=== PATIENT | male | born 1995 | race African-American/Black ===

== ENCOUNTER 2017-12-08 10:12 | Emergency (ER) | payer SELFPAY ==
[2017-12-08] MEDS ORDERED: Acetaminophen 325 MG/10.15 ML UDCUP ONE (10:40)
== END 2017-12-08 13:51 | disposition home or self-care (01) ==
LOC: ERS 10:12
DX: J11.1 Influenza due to unidentified influenza virus with other respiratory manifestations (principal); Z71.6 Tobacco abuse counseling; F17.210 Nicotine dependence, cigarettes, uncomplicated
CPT/HCPCS: 87081; 87430; 99406

== ENCOUNTER 2020-03-18 04:02 | Emergency (ER) | payer SELFPAY ==
[2020-03-18] MEDS ORDERED: Acetaminophen 500 MG TAB ONE (04:32)
[2020-03-18] MEDS ORDERED: Ibuprofen 800 MG TAB ONE (04:32)
== END 2020-03-18 05:19 | disposition home or self-care (01) ==
LOC: ERS 04:02
DX: M25.562 Pain in left knee (principal); M25.561 Pain in right knee; M25.572 Pain in left ankle and joints of left foot; M25.571 Pain in right ankle and joints of right foot; M54.6 Pain in thoracic spine; R50.9 Fever, unspecified; F17.210 Nicotine dependence, cigarettes, uncomplicated
CPT/HCPCS: 99283

== ENCOUNTER 2020-03-23 17:38 | Emergency (ER) | payer OTHER, SELFPAY ==
[2020-03-24 11:09] LABS: SARS-CoV-2 MS2 Positive; SARS-CoV-2 N Gene Positive; SARS-CoV-2 S Gene Positive; SARS-CoV-2 orf1ab Positive
== END 2020-03-23 18:36 | disposition home or self-care (01) ==
LOC: ERS 17:38
DX: U07.1 COVID-19 (principal); R51 Headache; R68.83 Chills (without fever)
CPT/HCPCS: 87635; 99284; U0003

== ENCOUNTER 2024-01-03 04:18 | Emergency (ER) | payer BC, SELFPAY ==
[2024-01-03] MEDS ORDERED: Morphine 4 MG/ML VIAL ONE (04:25)
[2024-01-03] MEDS ORDERED: Ondansetron PF 4 MG/2 ML Vial ONE (04:25)
[2024-01-03] MEDS ORDERED: Ketorolac Tromethamine 30 MG (1 mL) VIAL ONE (04:25)
[2024-01-03 04:54] LABS: #Eosinphils 0.1 thou/uL (0.0-0.7); #Neutrophils 3.4 thou/uL (1.40-6.50); %Basophils 0.2 % (0.0-1.0); %Eosinophils 1.1 % (0.0-10.0); %Lymphocytes 55.5 % (21.0-51.0); %Monocytes 9.4 % (0.0-10.0); %Neutrophils 33.6 % (42.0-75.0); Hematocrit 45.5 % (42.0-52.0); Hemoglobin 15.5 g/dL (14.0-18.0); Mean Corpuscular HGB CONC 34.1 g/dL (32.0-36.0); Mean Corpuscular Hemoglobin 30.7 pg (27.0-31.0); Mean Corpuscular Volume 90.1 fl (78.0-98.0); Mean Platelet Volume 10.3 fL (7.4-10.4); Platelet Count 201 10x3/uL (130-400); RBC Distribution Width 13.2 % (11.5-14.5); Red Blood Cell (RBC) Count 5.05 mill/uL (4.70-6.10); White Blood Cell (WBC) Count 10.1 10x3/uL (4.8-10.8)
[2024-01-03 05:17] LABS: ALT (SGPT) 15 U/L (8-55); AST (SGOT) 23 U/L (5-34); Albumin 4.5 g/dL (3.5-5.0); Alkaline Phosphatase 51 U/L (40-110); Anion Gap 14 mmol/L (10-20); BUN (Urea Nitrogen) 16 mg/dL (8.9-20.6); Bilirubin, Total 0.5 mg/dL (0.2-1.2); Calc. Creatinine Clearance 0 mL/min (70-130); Carbon Dioxide 25 mmol/L (22-29); Chloride 103 mmol/L (98-107); Estimated GFR 72; Globulin 3.1 g/dL (2.4-3.5); Glucose 109 mg/dL (70-105); Potassium 3.4 mmol/L (3.5-5.1); Protein, Total 7.6 g/dL (6.0-8.3); Sodium 139 mmol/L (136-145)
[2024-01-03 07:44] LABS: Bilirubin Negative (Negative); Blood, Urine 3+ (Negative); CAUTI Indications for Culture Dysuria,urgency,freq; Clarity Clear (Clear); Glucose, Urine (Dipstick) Normal (Negative); Ketone, Urine Trace mg/dL (Negative); Leukocyte Negative Leu/uL (Negative); Nitrite Negative (Negative); Protein, Urine (Dipstick) 30 mg/dL (Neg-Trace); RBC/HPF Greater than 50 HPF (0-3); Specific Gravity, Urine 1.026 (1.002-1.036); Squamous Epithelial None Seen HPF (0-3)
[2024-01-03 07:55] LABS: Bacteria/HPF None Seen HPF (None Seen); WBC/HPF 0-3 HPF (0-3)
[2024-01-03 07:56] LABS: Urine Culture Reflex No No
== END 2024-01-03 09:05 | disposition home or self-care (01) ==
LOC: ERS 04:18
DX: N13.2 Hydronephrosis with renal and ureteral calculous obstruction (principal); F17.210 Nicotine dependence, cigarettes, uncomplicated
CPT/HCPCS: 74176; 80053; 81001; 85025; 96361; 96374; 96375; J1885; J2270; J2405